=== PATIENT | female | born 1940 | race Caucasian/White ===

== ENCOUNTER 2021-10-20 13:01 | Emergency (ER) | payer MEDICARE ==
[~2021-10-20] VITALS: Ht 162.6 cm; Wt 136.0 kg
--- NOTE | 2021-10-20 13:10 | PHYS DOC ---
Past History Past Medical History: A-Fib, CHF, COPD Alcohol Use: None Drug Use: None General Adult EDM: Chief Complaint: SHORTNESS OF BREATH HPI: HPI: Patient is a 81-year-old female brought in by EMS from [facility] for hypoxia, respiratory failure, coughing, weakness and confusion. She is reportedly being treated for pneumonia and a urinary tract infection. It appears that she is taking amoxicillin. The patient is in at least moderate distress, she is confused, and I am unable to procure more detailed, meaningful information directly from her. She has been at this facility for the last week or so. She had been transferred from a small hospital in [facility]. Patient has chronic hypoxic respiratory failure, usually wears 4 L per nasal cannula at all times. She has congestive heart failure and COPD. No reported history of current tobacco use. The patient has been coughing for several days. The cough was acutely worse today. There is no documentation of her having had a fever. The [facility] called EMS because they rolled the patient to a prone position in order to clean her or change her, and she desaturated to the 40s, became acutely dyspneic, manifested respiratory distress, they roll her back onto her back, placed her back on oxygen. When EMS arrived, they report that her saturations were 90 to 92% on 4 L. She had not received her scheduled DuoNeb treatment today, EMS gave her a DuoNeb treatment in route, but she was only able to complete about a third of this. The patient has a history of chronic atrial fibrillation, is anticoagulated, has multiple other medical problems. It does not sound like she had any acute changes in medications, aside from antibiotics. She has an indwelling Carrero catheter. I am not sure how long this has been present nor when it was changed last. She is currently a full code, but apparently the senior care facility staff has been in talks with the family about trying to transition her to comfort care or hospice care. The patient reports that she is tired. She denies having chest pain or abdominal pain. She denies nausea. She is agitated and keeps asking where her family is. She repeatedly asks to go home. There is no history of reported fall or head injury. No seizure activity. The patient is chronically tremulous at baseline, this is exacerbated by her anxiety and agitation, no acute changes reported today specifically. Review of Systems: Review of Systems: Significantly limited review of systems secondary to clinical condition and confusion. Physical Exam: PE: Constitutional: Frail, chronically ill-appearing, she manifests evidence of acute moderate respiratory distress, acute illness. HENT: Normocephalic, atraumatic, evidence of facial oral trauma. Mucous mem branes are tacky. Oropharynx is patent and clear. Eyes: Mild conjunctival pallor is noted. No scleral icterus. No evidence of periorbital trauma, edema or contusion Neck: Trachea is midline, no meningismus, +JVD Cardiovascular: Irregularly irregular, tachycardic in the low 100s, consistent with atrial fibrillation with RVR. +2 radial pulses bilaterally. Lungs & Thorax: Marked tachypnea, intercostal retractions, speaks in brief, short sentences, no central cyanosis, inspiratory and expiratory wheezing noted, diminished breath sounds in the left mid and lower lung ugarte, bibasilar rales, loud rhonchi throughout, worse on the left. No subcutaneous edema or chest wall crepitus. Abdomen: Abdomen is obese, soft, nondistended, no tenderness to palpation. Skin: Warm, dry, poor skin turgor. She has multiple bruises on both upper extremities, both hands, both lower extremities. Back: No acute deformity. Markedly limited range of motion secondary to body habitus and respiratory distress. Extremities: Bilateral, symmetric 2+ lower extremity pitting edema, with venous stasis changes, weeping, superficial venous ulcers noted the left anterior lower leg. No calf tenderness. Pelvis is stable. No acute limb deformity is noted Neurologic: She is awake and alert, oriented to person only. She does not know the date, time, nor situation. She intermittently understands that she is in the hospital, but she cannot articulate any other details of the situation. She follows commands. Moves all 4 extremities equally. She manifest diffuse, nonfocal motor weakness. No facial asymmetry is noted. Speech fluency is limited by respiratory distress. Psychologic: She is anxious, manifests some psychomotor agitation, she is verbally redirectable. EKG: EKG: EKG is interpreted at 1343 Rhythm is atrial fibrillation with RVR Rate is 101 bpm [place] is normal low voltage No STEMI Radiology/Procedures: Radiology/Procedures: IMAGING REPORT Signed PATIENT: LASHAY RIGGSACCOUNT: [id number] : 1940 LOCATION: ER AGE: 81 SEX: F EXAM STATUS: REG ER ORD. PHYSICIAN: ANDREW GANNON DO REASON: cough, dyspnea PROCEDURE: PORTABLE CHEST 1V AP chest. HISTORY: Cough, dyspnea AP view was taken of the chest. Heart is enlarged. There is diffuse opacification the left hemithorax with diffuse infiltrates. A pleural effusion is possible. There is linear atelectasis in the right lung base without other right lung infiltrates. IMPRESSION: 1. Diffuse left lung infiltrates suggest pneumonia. 2. Probable left effusion. Electronically signed by: Yong Strauss MD (10/20/2021 1:50 PM) [facility] DICTATED AND SIGNED BY: YONG STRAUSS MD DATE: 10/20/211348 CC: ANDREW GANNON DO; PCP,UNKNOWN ~ Heart Score: C/O Chest Pain: No Risk Factors: Risk Factors: DM, Current or recent (<one month) smoker, HTN, HLP, family history of CAD, obesity. Risk Scores: Score 0 - 3: 2.5% MACE over next 6 weeks - Discharge Home Score 4 - 6: 20.3% MACE over next 6 weeks - Admit for Clinical Observation Score 7 - 10: 72.7% MACE over next 6 weeks - Early Invasive Strategies Course & Med Decision Making: Course & Med Decision Making Pertinent Labs and Imaging studies reviewed. (See chart for details) The patient is placed back on nasal cannula oxygen, she is titrated to 5 L per nasal cannula. IV Solu-Medrol, duo nebs given. Blood cultures are ordered. IV Zosyn and vancomycin ordered for coverage of healthcare associated pneumonia. IV furosemide is ordered. I had multiple discussions with the patient and her son and her regarding the findings, differential diagnosis and plan of care. She is incredibly ill, I am not helpful for excellent recovery, I feel that her long-term prognosis is poor. The patient's and son understand this. 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 It would be closer for her to visit her there as well. I was able to contact the facility, she is accepted for admission by Dr. Celestin. The patient's labs had to be redrawn secondary to initially being hemolyzed. Chemistries returned as showing marked hyperkalemia. Renal function is worse, based on what is described as her labs done at the senior care facility. It sounds like early this week her creatinine was 2.6. Today is 3.3. I ordered a continuous albuterol nebulizer treatment, small fluid bolus, she had already received IV Lasix, I ordered IV insulin and IV dextrose. I discussed this with the family as well. She has tolerated interventions well. The patient is calming down, she is becoming slightly more sleepy, though she does arouse. Oxygen saturation is dropping to the high 80s, I have recommended titration of oxygen and BiPAP placement. She is placed on BiPAP prior to transfer to [facility]. Yenni Disclaimer: Yenni Disclaimer: This electronic medical record was generated, in whole or in part, using a voice recognition dictation system. Critical Care Note Total Time (mins): 120 Comments Critical care time involves management of respiratory failure, management of hyperkalemia, serial exams, multiple discussions with patient's family, discussion of care, arrangements for transfer. Reviewed imaging studies, review of laboratory exams. Departure Departure: Impression: Primary Impression: Acute on chronic respiratory failure with hypoxia Additional Impressions: Healthcare-associated pneumonia Congestive heart failure Qualified Codes: I50.9 - Heart failure, unspecified Renal failure Qualified Codes: N19 - Unspecified kidney failure Lactic acidosis Chronic atrial fibrillation Failure to thrive in adult Hyperkalemia Disposition: 02 SHORT TERM HOSPITAL Condition: GUARDED ([facility] in [place], [place]) Referrals: PCP,UNKNOWN (PCP) ANDREW GANNON DO Oct 20, 2021 13:10
[2021-10-20] MEDS: IPRATRPIUM/ALBUTEROL 0.5/2.5MG 3 ML NEBU. NEB ONE (13:15)
--- NOTE | 2021-10-20 13:53 | RAD ---
AP chest. HISTORY: Cough, dyspnea AP view was taken of the chest. Heart is enlarged. There is diffuse opacification the left hemithorax with diffuse infiltrates. A pleural effusion is possible. There is linear atelectasis in the right l spring base without other right lung infiltrates. IMPRESSION: 1. Diffuse left lung infiltrates suggest pneumonia. 2. Probable left effusion. Electronically signed by: Yong Strauss MD (10/20/2021 1:50 PM) [facility]
[2021-10-20] MEDS: PIPERACILLIN/TAZOBACTAM 4.5 GM in IV NORMAL SALINE 50ML 50 ML IV ONE (14:15)
[2021-10-20] MEDS ORDERED: IV NORMAL SALINE 50ML 50 ML ONE (14:16)
[2021-10-20] MEDS ORDERED: PIPERACILLIN/TAZOBACTAM 4.5 GM VIAL IV ONE (14:16)
[2021-10-20] MEDS: methylPREDNISolone SOD SUCC PF 125 MG/2 ML VIAL. IV ONE (14:21)
[2021-10-20 14:38] LABS: BASO # 0.1 x10^3/uL (0.0-0.2); BASO % 1 % (0-3); EOS % 0 % (0-3); HEMATOCRIT 43.9 % (36.0-47.0); HEMOGLOBIN 14.1 g/dL (12.0-15.5); LYMPH # 0.4 x10^3/uL (1.0-4.8); LYMPH % 3 % (24-48); MEAN CORPUSCULAR HEMOGLOBIN 32 pg (25-35); MEAN CORPUSCULAR HGB CONC 32 g/dL (31-37); MEAN CORPUSCULAR VOLUME 99 fL (79-100); MONO # 0.8 x10^3/uL (0.0-1.1); MONO % 6 % (0-9); NEUT # 11.6 x10^3uL (1.8-7.7); NEUT % 89 % (31-73); PLATELET COUNT 205 x10^3/uL (140-400); RED BLOOD COUNT 4.45 x10^6/uL (3.50-5.40); RED CELL DISTRIBUTION WIDTH 15.1 % (11.5-14.5)
--- NOTE | 2021-10-20 15:01 | EKG ---
[address] [address] Test Date: 2021-10-20 Test Time: 13:42:14 Pat Name: LASHAY RIGGS Department: Room: Gender: F Housekeeping Aide: RAUL : 1940 Requested By: ANDREW GANNON Order Number: [id number] Reading MD: Johnathon Buck Measurements Intervals [place] Rate: 0 P: PA: QRS: 0 QRSD: 0 T: 0 QT: 0 QTc: 0 Interpretive Statements PROBABLE ATRIAL FIBRILLATION RIGHT BUNDLE BRANCH BLOCK LOW VOLTAGES Electronically Signed On 10-21-2021 13:18:31 CDT by Johnathon Buck
[2021-10-20] MEDS: VANCOMYCIN 2 GM in IV NORMAL SALINE 500ML 500 ML IV ONE (15:40)
[2021-10-20] MEDS ORDERED: FUROSEMIDE 40 MG/4 ML VIAL ONE (15:43)
[2021-10-20] MEDS: FUROSEMIDE 40 MG/4 ML VIAL IVP ONE (15:45)
[2021-10-20 16:00] LABS: ALBUMIN/GLOBULIN RATIO 0.5 (1.0-1.7); CALCIUM 8.6 mg/dL (8.5-10.1); CREATININE 3.3 mg/dL (0.6-1.0); GFR 13.4; TOTAL BILIRUBIN 1.1 mg/dL (0.2-1.0); TOTAL PROTEIN 6.4 g/dL (6.4-8.2)
[2021-10-20 16:02] LABS: POTASSIUM 8.3 mmol/L (3.5-5.1)
[2021-10-20] MEDS: ALBUTEROL SULFATE 2.5 MG/3 ML NEBU. CONT NEB ONE (16:15)
[2021-10-20] MEDS: INSULIN REGULAR 100 UNIT/ML 3ML VIAL. IV ONE (16:41)
[2021-10-20] MEDS: IV NORMAL SALINE 500ML 500 ML IV ONE ×2 (16:45→18:15)
[2021-10-20] MEDS: DEXTROSE 50% 25 GM / 50ML DISP.SYRIN. IV ONE (17:11)
[2021-10-20 18:09] VITALS: BP 152/61
== END 2021-10-20 18:38 | disposition short-term general hospital (02) ==
LOC: ER 13:01
DX: J96.21 Acute and chronic respiratory failure with hypoxia (principal); J18.9 Pneumonia, unspecified organism; N19 Unspecified kidney failure; I50.9 Heart failure, unspecified; I48.20 Chronic atrial fibrillation, unspecified; E87.2 Acidosis; R62.7 Adult failure to thrive; E87.5 Hyperkalemia; J44.9 Chronic obstructive pulmonary disease, unspecified; Z68.43 Body mass index [BMI] 50.0-59.9, adult
CPT/HCPCS: 36415; 71045; 80053; 82803; 82947; 83605; 83880; 84145; 84484; 85025; 85610; 85730; 87040; 87077; 87186; 93005; 94640; 94660; 96365; 96366; 96367; 96375; 99291; 99292; J1815; J1940; J2060; J2543; J2930; J3370; J7040; J7613